=== PATIENT | male | born 1945 | race African-American/Black ===

== ENCOUNTER 2020-03-07 09:13 | Inpatient (IN) | payer MEDICAID, MEDICARE ==
[~2020-03-07] VITALS: Ht 157.5 cm; Wt 74.9 kg
--- NOTE | 2020-03-07 09:29 | NUR ---
[facility] WITH REPORTED SA, PT TRIED TO HANG SELF WITH SHIRT, ON ARRIVAL, PT STATES "I DONT KNOW, I HAVENT HAD FOOD OR WATER FOR THREE DAYS, THERE IS NO FOOD AT THE [facility]." PT ON , 3D MODELER MADE AWARE, ERMD IN TO EVAL PT HE IS TO HAVE PSYCH COMPUTER TECHNOLOGY TRAINER TO EVAL PT
--- NOTE | 2020-03-07 09:35 | NUR ---
PT REFUSING TO HAVE LABS DRAWN STATES, "IM HAVING A HEART ATTACK, YOU CANT TAKE MY BLOOD, I CAN TODAY AND THEN TOMORROW YOU CAN TAKE MY BLOOD NOT TODAY." Addendum: 03/07/20 at 1230 by AMCCOMB GIN LEWIS MADE AWARE. PT WITH HR 110-130 ON MONITOR, EKG COMPLETED, PT IN AFIB, PT REFUSING TO BE PLACED ON CARD MONITOR. ERMD UPDATED
--- NOTE | 2020-03-07 10:06 | NUR ---
RECEIVED REPORT FROM MIRI DENIS. PT MOVED TO ROOM 40. SECURITY X 2 AT BEDSIDE. PT PLACED ON HEART MONITOR FOR A FIB.
--- NOTE | 2020-03-07 10:15 | NUR ---
PT NO LONGER IN CUSTODY AND SECURITY X 2 HAVE LEFT. ROOM SECURED. HEART MONITOR REMAINS IN PLACE. SITTER AT BEDSIDE. PT PROVIDED W/ SI BREAKFAST TRAY.
--- NOTE | 2020-03-07 10:26 | NUR ---
PT NOTED TO HAVE A FIB W/ RVR. ERP DR. BYNUM NOTIFIED. PER ERP START IV AND GIVE MEDS. PT REFUSING PIV. STATES "IF YOU START THAT JACKELINE AND TAKE MY BLOOD I WILL HAVE A HEART ATTACK AND I WILL ". PT EDUCATED ON IMPORTANCE OF PIV AND MEDS FOR A FIB W/ RVR. PT CONTINUES TO REFUSE. ERP MADE AWARE.
[2020-03-07] MEDS ORDERED: METOPROLOL TARTRATE 25 MG TAB PO ONE (10:30)
--- NOTE | 2020-03-07 10:38 | NUR ---
THIS RN WENT INTO PT ROOM W/ PIV SUPPLIES AND EDUCATED PT ON NEED FOR IV FOR ARRYTHMIA. PT CONTINUES TO REFUSE PIV. PT DENIES SI/HI/PLAN. PT RESTING ON GURNEY. NADN. SITTER REMAINS AT BEDSIDE. ROOM SECURED. HEART MONITOR REMAINS IN PLACE.
[2020-03-07] MEDS ORDERED: METOPROLOL TARTRATE 25 MG TAB ONE (10:40)
--- NOTE | 2020-03-07 10:43 | NUR ---
SPOKE W/ ERP IN REGARDS TO MEDS FOR PT. NEW ORDER PLACED. PT MEDICATED PER OCT.
--- NOTE | 2020-03-07 10:49 | NUR ---
UA COLLECTED, LABELED AND WALKED TO LAB.
[2020-03-07 11:23] LABS: AMPHETAMINE SCREEN, URINE Negative (Negative); BARBITURATE SCREEN, URINE Negative (Negative); BENZODIAZEPINE SCREEN, URINE Negative (Negative); CANNABINOID SCREEN, URINE Negative (Negative); COCAINE SCREEN, URINE Negative (Negative); METHADONE SCREEN, URINE Negative (Negative); OPIATE SCREEN, URINE Negative (Negative)
--- NOTE | 2020-03-07 11:27 | NUR ---
HR NOTED TO BE IN THE RANGE OF 75-84. ERP NOTIFIED OF HR. PT RESTING ON GURANDREA. RIGOBERTO. VSS.
--- NOTE | 2020-03-07 12:04 | NUR ---
DAVID, PSYCH INDUSTRIAL RELATIONS COMMISSIONER AT BEDSIDE.
[2020-03-07] MEDS ORDERED: ASPIRIN 81 MG TABLET CHEW ONE (12:16)
--- NOTE | 2020-03-07 12:19 | NUR ---
PT TO BE PLACED ON HOLD. PT CONTINUES TO REFUSE PIV AND BLOODWORK DESPITE EDUCATION.
[2020-03-07] MEDS ORDERED: ASPIRIN 81 MG TABLET CHEW PO ONE (12:30)
--- NOTE | 2020-03-07 12:40 | NUR ---
W/ THE ASSISTANCE OF MIRI MULLIGAN AND MIRI LANGLEY. ABLE TO START PIV AND GET BLOOD. ERP NOTIIFED. SITTER REMAINS AT BEDSIDE. ROOM REMAINS SECURE.
[2020-03-07 12:55] LABS: BASOPHILS # (AUTO) 0.03 x10^3/uL (0-0.1); BASOPHILS % (AUTO) 0 % (0-1); EOSINOPHILS # (AUTO) 0.01 x10^3/uL (0-0.4); EOSINOPHILS % (AUTO) 0 % (1-7); LYMPHOCYTES # (AUTO) 1.28 x10^3/uL (1-3.4); LYMPHOCYTES % (AUTO) 17 % (22-44); MD NO; MEAN CORPUSCULAR HEMOGLOBIN 31.5 pg (27.5-34.5); MEAN CORPUSCULAR HGB CONC 32.9 g/dL (33.2-36.2); MEAN PLATELET VOLUME 8.4 fL (7.4-10.4); MONOCYTES # (AUTO) 0.65 x10^3/uL (0.2-0.8); MONOCYTES % (AUTO) 8 % (2-9); NEUTROPHILS # (AUTO) 5.75 x10^3/uL (1.8-6.8); NEUTROPHILS % (AUTO) 75 % (42-75); PLATELET COUNT 171 x10^3/uL (130-400); RED BLOOD COUNT 4.35 x10^6/uL (4.38-5.82); RED CELL DISTRIBUTION WIDTH 15.5 % (9.4-14.8)
[2020-03-07 13:05] LABS: ALBUMIN 3.3 g/dL (3.4-5.0); ANION GAP 5 mmol/L (5-15); CALCIUM 8.9 mg/dL (8.5-10.1); CHLORIDE 108 mmol/L (98-107)
[2020-03-07 13:11] LABS: CREATININE 0.74 mg/dL (0.7-1.3); TROPONIN I < 0.015 ng/mL (0.000-0.045)
[2020-03-07 13:29] VITALS: BP 134/65
--- NOTE | 2020-03-07 13:55 | NUR ---
REPORT GIVEN TO MIRI PAEZ.
[2020-03-07] MEDS ORDERED: HALOPERIDOL 5 MG/ML IM PRN ×2 (14:30→18:30)
--- NOTE | 2020-03-07 14:42 | NUR ---
Pt resting in bed with eyes closed, resp even and unlabored, NADN. Room is secured, sitter within eyesight of pt, all safety measures observed.
--- NOTE | 2020-03-07 15:16 | NUR ---
Report recieved from MIRI Corea. Plan of care discussed. Patient resting in bed, respirations even and unlabored. Sitter at door for safety, room secured.
[2020-03-07] MEDS ORDERED: SODIUM CHLORIDE FLUSH 10ML SYR IVF PRN (16:00)
--- NOTE | 2020-03-07 16:10 | NUR ---
Patient resting in bed, respirations even and unlabored. Sitter at door for safety, room secured. Call light in reach, monitoring in place. Patient is to be admitted
--- NOTE | 2020-03-07 17:46 | NUR ---
REPORT GIVEN TO MIRI WHITE. PLAN OF CARE DISCUSSED
[2020-03-07 18:03] LABS: FREE T4 (FREE THYROXINE) 0.89 ng/dL (0.76-1.46)
[2020-03-07] MEDS ORDERED: ONDANSETRON ODT 4 MG PO PRN (18:30)
[2020-03-07] MEDS ORDERED: LORazepam 1MG TABLET PO PRN (18:30)
[2020-03-07] MEDS ORDERED: TRAZODONE 50MG TABLET PO PRN (18:30)
[2020-03-07] MEDS ORDERED: HYDROcodone/APAP 5/325 TABLET PO PRN (18:30)
[2020-03-07] MEDS ORDERED: LABETALOL 5MG/ML, 20ML IVPush PRN (18:30)
[2020-03-07] MEDS ORDERED: ONDANSETRON 2MG/ML, 2ML IVPush PRN (18:30)
[2020-03-07] MEDS ORDERED: ACETAMINOPHEN 325 MG TABLET PO PRN (18:30)
[2020-03-07] MEDS ORDERED: morphine SULFATE 10 MG/ML, 1ML IVPush PRN (18:30)
[2020-03-07] MEDS: LACTATED RINGERS 1,000 ML IV SCH ×2 (18:42→20:20)
[2020-03-07] MEDS: FAMOTIDINE 20 MG TABLET PO SCH (20:25)
[2020-03-08] MEDS: ASPIRIN 325 MG TABLET EC PO SCH (05:08)
[2020-03-08] MEDS: FAMOTIDINE 20 MG TABLET PO SCH ×2 (09:00→21:00)
[2020-03-08] MEDS: LACTATED RINGERS 1,000 ML IV SCH (09:25)
[2020-03-09] MEDS: ASPIRIN 325 MG TABLET EC PO SCH (04:08)
[2020-03-09] MEDS: FAMOTIDINE 20 MG TABLET PO SCH (08:49)
== END 2020-03-09 16:39 | DRG 753 ==
LOC: ED 09:36 → MERGE 09:36 → EDIP 15:55 → 5SO 18:14 → 3N 03-08 13:59
PROVIDERS: ADMIT Internal Medicine; ATTEND Internal Medicine
DX: F39 Unspecified mood [affective] disorder (principal); F29 Unspecified psychosis not due to a substance or known physiological condition; R45.851 Suicidal ideations; I48.91 Unspecified atrial fibrillation; F17.200 Nicotine dependence, unspecified, uncomplicated; Z53.20 Procedure and treatment not carried out because of patient's decision for unspecified reasons; Z59.0 Homelessness; Z91.19 Patient's noncompliance with other medical treatment and regimen
CPT/HCPCS: 36415; 71045; 80048; 80307; 82040; 83880; 84439; 84443; 84481; 84484; 85025; 93005; G0378; J7120